=== PATIENT | female | born 1955 | race Caucasian/White ===

== ENCOUNTER 2019-03-24 11:29 | Emergency (ER) | payer MEDICARE, MEDICAID ==
[~2019-03-24] VITALS: Ht 160 cm; Wt 60.0 kg
[2019-03-24 11:44] VITALS: BP 122/78
[2019-03-24] MEDS ORDERED: HYDROcodone/acetaminophen 10/325mg tab PO ONE (12:20)
[2019-03-24] MEDS ORDERED: HYDR-4353 PO (13:16)
== END 2019-03-24 13:43 | disposition home or self-care (01) ==
LOC: ER 11:29
DX: M54.5 Low back pain (principal); M54.6 Pain in thoracic spine; G89.29 Other chronic pain; M81.0 Age-related osteoporosis without current pathological fracture; Z79.899 Other long term (current) drug therapy
CPT/HCPCS: 72070; 72100; 99283

== ENCOUNTER 2019-05-27 15:00 | Inpatient (IN) | payer MEDICARE, MEDICAID ==
[~2019-05-27] VITALS: Ht 160 cm; Wt 59.5 kg
[2019-05-27 18:21] LABS: BASOPHILS % (AUTO) 0.4 % (0-1); EOSINOPHILS # (AUTO) 0.1 X10'3 (0-0.9); EOSINOPHILS % (AUTO) 1.1 % (0-6); HEMATOCRIT 42.2 % (35.0-45.0); HEMOGLOBIN 14.7 g/dl (12.0-16.0); LYMPHOCYTES # (AUTO) 1.2 X10'3 (1.1-4.8); LYMPHOCYTES % (AUTO) 12.8 % (21-51); MEAN CORPUSCULAR HEMOGLOBIN 31.5 PG (27.0-31.0); MEAN CORPUSCULAR HGB CONC 34.8 g/dL (33.0-36.5); MEAN CORPUSCULAR VOLUME 90.3 FL (78-98); MEAN PLATELET VOLUME 6.4 FL (7.4-10.4); MONOCYTES % (AUTO) 10.8 % (2-12); NEUTROPHILS # (AUTO) 6.8 X10'3 (1.8-7.7); NEUTROPHILS % (AUTO) 74.9 % (42-75); PLATELET COUNT 330 X10'3 (140-440); RED BLOOD COUNT 4.67 X10'6 (4.20-5.60); RED CELL DISTRIBUTION WIDTH 12.3 % (11.5-14.5)
[2019-05-27 18:46] LABS: ALANINE AMINOTRANSFERASE 25 U/L (12-78); ALBUMIN 3.2 G/DL (3.4-5.0); ALBUMIN/GLOBULIN RATIO 0.8 (1.1-1.5); ALKALINE PHOSPHATASE 222 IU/L (46-116); ANION GAP 2 (8-16); ASPARTATE AMINO TRANSFERASE 24 U/L (10-37); BILIRUBIN,TOTAL 0.8 MG/DL (0.1-1.0); BLOOD UREA NITROGEN 5 MG/DL (7-18); BUN/CREATININE RATIO 12.2 (6.6-38.0); CALCIUM 8.9 MG/DL (8.5-10.1); CHLORIDE 83 MMOL/L (99-107); CREATININE 0.41 MG/DL (0.40-0.90); GLUCOSE 104 MG/DL (70-104); POTASSIUM 4.7 MMOL/L (3.5-5.1); TOTAL CARBON DIOXIDE 30.9 MMOL/L (24-32); TOTAL PROTEIN 7.2 G/DL (6.4-8.2); eGFR > 90 ML/MIN
[2019-05-27 19:00] LABS: SODIUM 116 MMOL/L (135-145)
[2019-05-27] MEDS ORDERED: AMLO10TA13 PO (20:29)
[2019-05-27] MEDS ORDERED: IBUP-1985 PO (20:29)
[2019-05-27] MEDS ORDERED: LISI40TA4 PO (20:29)
[2019-05-27] MEDS ORDERED: ondansetron/PF 4mg/2ml inj IV PRN (21:15)
[2019-05-27] MEDS ORDERED: HYDROcodone/acetaminophen 10/325mg tab PO PRN (21:15)
[2019-05-27] MEDS ORDERED: acetaminophen 325mg tablet PO PRN ×2 (21:15)
[2019-05-27] MEDS ORDERED: morphine 2 MG/ML inj. syringe IV PRN (21:15)
[2019-05-27] MEDS ORDERED: mag hydrox/Alum hydrox/simeth 30ml oral suspension PO PRN ×2 (21:15→23:35)
[2019-05-27] MEDS ORDERED: HYDROcodone/acetaminophen 5mg/325mg tablet PO PRN (21:15)
[2019-05-27] MEDS ORDERED: magnesium hydroxide 30ml (MOM) UD suspension PO PRN (21:15)
[2019-05-27 22:10] VITALS: BP 136/78
[2019-05-27] MEDS: normal saline 1000ml 1,000 ML IV SCH (22:35)
[2019-05-27] MEDS: morphine 2 MG/ML inj. syringe IV PRN (22:36)
[2019-05-27] MEDS ORDERED: ibuprofen 200mg tablet PO PRN (23:20)
[2019-05-27] MEDS ORDERED: LORazepam 2 mg/ml vial IV PRN (23:30)
[2019-05-27] MEDS ORDERED: thiamine inj. 100 MG in normal saline 100ml IV soln 100 ML IV ONE (23:30)
[2019-05-28] MEDS: morphine 2 MG/ML inj. syringe IV PRN (05:23)
[2019-05-28 06:00] VITALS: BP 107/63
--- NOTE | 2019-05-28 06:17 | NUR ---
Patient in room ORTHO 4020. I have received report from KELLY Denton and had the opportunity to ask questions and assume patient care.
[2019-05-28 07:07] LABS: BASOPHILS % (AUTO) 0.4 % (0-1); EOSINOPHILS # (AUTO) 0.1 X10'3 (0-0.9); EOSINOPHILS % (AUTO) 1.5 % (0-6); HEMATOCRIT 40.1 % (35.0-45.0); HEMOGLOBIN 13.9 g/dl (12.0-16.0); LYMPHOCYTES % (AUTO) 16.2 % (21-51); MEAN CORPUSCULAR HEMOGLOBIN 31.8 PG (27.0-31.0); MEAN CORPUSCULAR HGB CONC 34.7 g/dL (33.0-36.5); MEAN CORPUSCULAR VOLUME 91.6 FL (78-98); MEAN PLATELET VOLUME 6.8 FL (7.4-10.4); MONOCYTES % (AUTO) 17.1 % (2-12); NEUTROPHILS # (AUTO) 3.8 X10'3 (1.8-7.7); NEUTROPHILS % (AUTO) 64.8 % (42-75); PLATELET COUNT 262 X10'3 (140-440); RED BLOOD COUNT 4.38 X10'6 (4.20-5.60); RED CELL DISTRIBUTION WIDTH 12.3 % (11.5-14.5); WHITE BLOOD COUNT 5.9 X10'3 (4.5-11.0)
[2019-05-28 07:14] LABS: ALANINE AMINOTRANSFERASE 20 U/L (12-78); ALBUMIN 2.5 G/DL (3.4-5.0); ALBUMIN/GLOBULIN RATIO 0.8 (1.1-1.5); ALKALINE PHOSPHATASE 179 IU/L (46-116); AMYLASE 14 U/L (25-115); ANION GAP 8 (8-16); ASPARTATE AMINO TRANSFERASE 21 U/L (10-37); BILIRUBIN,TOTAL 0.7 MG/DL (0.1-1.0); BLOOD UREA NITROGEN 5 MG/DL (7-18); BUN/CREATININE RATIO 13.5 (6.6-38.0); CALCIUM 8.3 MG/DL (8.5-10.1); CHLORIDE 91 MMOL/L (99-107); CREATININE 0.37 MG/DL (0.40-0.90); GLUCOSE 88 MG/DL (70-104); LIPASE < 50 U/L (73-393); MAGNESIUM 1.6 MG/DL (1.5-2.4); PHOSPHORUS 3.1 MG/DL (2.3-4.5); POTASSIUM 3.5 MMOL/L (3.5-5.1); SODIUM 124 MMOL/L (135-145); TOTAL CARBON DIOXIDE 25.2 MMOL/L (24-32); TOTAL PROTEIN 5.8 G/DL (6.4-8.2); eGFR > 90 ML/MIN
[2019-05-28] MEDS: normal saline 1000ml 1,000 ML IV SCH ×2 (07:14→19:23)
[2019-05-28 08:00] VITALS: BP 97/70
[2019-05-28] MEDS ORDERED: folic acid inj. 2 MG, thiamine inj. 100 MG, MVI, adult No.4 with vit. K 10 ML in dextro... IV SCH ×4 (08:00)
[2019-05-28] MEDS: amLODIPine 5mg tablet PO SCH (08:02)
[2019-05-28] MEDS: thiamine 100mg tablet PO SCH (08:02)
[2019-05-28] MEDS: pantoprazole 40mg Tablet.DR PO SCH ×2 (08:03→20:11)
[2019-05-28] MEDS: multivitamins, therapeutics tablet PO SCH (08:03)
[2019-05-28] MEDS: folic acid 1mg tablet PO SCH (08:03)
[2019-05-28] MEDS: heparin, porcine 5000 units/ml vial SQ SCH ×2 (08:04→20:11)
[2019-05-28] MEDS: LORazepam 1 MG tablet PO PRN ×2 (08:08→20:12)
[2019-05-28 08:13] LABS: PLATELET ESTIMATE NORMAL; TOTAL CELLS COUNTED 100
[2019-05-28 10:00] VITALS: BP 97/70
[2019-05-28] MEDS ORDERED: pneumococcal 23-VAL P-sac vacc 25 mcg/0.5ml vial IMVAC ONE (10:00)
--- NOTE | 2019-05-28 11:30 | NUR ---
Spoke with family regarding alcohol withdrawal, patient stated she would not stop drinking. Family agreed that it would be better for patient to have a couple of beers per day while she is here to limit withdrawal symptoms instead of putting patient into withdrawal.
--- NOTE | 2019-05-28 14:35 | NUR ---
PAGER ID: [phone] MESSAGE: KELLY Ledesma, ext [phone], [id number], Lenny, Patient requesting nicotine patch.
[2019-05-28 18:00] VITALS: BP 120/75
--- NOTE | 2019-05-28 18:18 | NUR ---
Problems reprioritized. Patient report given, questions answered & plan of care reviewed with KELLY Martinez.
[2019-05-28] MEDS ORDERED: lisinopril 20mg tablet PO SCH (21:00)
[2019-05-28 22:00] VITALS: BP 93/51
[2019-05-29] MEDS: normal saline 1000ml 1,000 ML IV SCH (03:14)
[2019-05-29 06:23] LABS: BASOPHILS % (AUTO) 0.9 % (0-1); EOSINOPHILS # (AUTO) 0.1 X10'3 (0-0.9); EOSINOPHILS % (AUTO) 2.7 % (0-6); HEMATOCRIT 38.7 % (35.0-45.0); HEMOGLOBIN 13.2 g/dl (12.0-16.0); LYMPHOCYTES # (AUTO) 1.2 X10'3 (1.1-4.8); LYMPHOCYTES % (AUTO) 23.6 % (21-51); MEAN CORPUSCULAR HEMOGLOBIN 31.1 PG (27.0-31.0); MEAN CORPUSCULAR VOLUME 91.7 FL (78-98); MEAN PLATELET VOLUME 6.5 FL (7.4-10.4); MONOCYTES % (AUTO) 18.3 % (2-12); NEUTROPHILS # (AUTO) 2.9 X10'3 (1.8-7.7); NEUTROPHILS % (AUTO) 54.5 % (42-75); PLATELET COUNT 274 X10'3 (140-440); RED BLOOD COUNT 4.22 X10'6 (4.20-5.60); RED CELL DISTRIBUTION WIDTH 12.6 % (11.5-14.5); WHITE BLOOD COUNT 5.3 X10'3 (4.5-11.0)
--- NOTE | 2019-05-29 06:29 | NUR ---
REPORT GIVEN TO KELLY HESTER.
[2019-05-29 06:47] LABS: ALANINE AMINOTRANSFERASE 18 U/L (12-78); ALBUMIN 2.7 G/DL (3.4-5.0); ALBUMIN/GLOBULIN RATIO 0.8 (1.1-1.5); ALKALINE PHOSPHATASE 174 IU/L (46-116); AMYLASE 17 U/L (25-115); ANION GAP 6 (8-16); ASPARTATE AMINO TRANSFERASE 18 U/L (10-37); BILIRUBIN,TOTAL 0.4 MG/DL (0.1-1.0); BLOOD UREA NITROGEN 4 MG/DL (7-18); BUN/CREATININE RATIO 9.3 (6.6-38.0); CALCIUM 8.4 MG/DL (8.5-10.1); CHLORIDE 95 MMOL/L (99-107); CREATININE 0.43 MG/DL (0.40-0.90); GLUCOSE 87 MG/DL (70-104); LIPASE 62 U/L (73-393); MAGNESIUM 1.7 MG/DL (1.5-2.4); SODIUM 128 MMOL/L (135-145); TOTAL CARBON DIOXIDE 27.5 MMOL/L (24-32); TOTAL PROTEIN 6.1 G/DL (6.4-8.2); eGFR > 90 ML/MIN
[2019-05-29 06:48] VITALS: BP 118/71
--- NOTE | 2019-05-29 06:49 | NUR ---
Patient in room ORTHO 4020A. I have received report from KELLY BOWER and had the opportunity to ask questions and assume patient care.
[2019-05-29] MEDS: folic acid 1mg tablet PO SCH (07:36)
[2019-05-29] MEDS: amLODIPine 5mg tablet PO SCH (07:37)
[2019-05-29] MEDS: pantoprazole 40mg Tablet.DR PO SCH (07:37)
[2019-05-29] MEDS: multivitamins, therapeutics tablet PO SCH (07:38)
[2019-05-29] MEDS: thiamine 100mg tablet PO SCH (07:38)
[2019-05-29] MEDS: heparin, porcine 5000 units/ml vial SQ SCH (07:39)
--- NOTE | 2019-05-29 09:35 | NUR ---
PAGER ID: [phone] MESSAGE: KACIE [phone]-[id number]: SHIN MAR [id number]...PT IS REQUESTING NICOTINE PATCH
[2019-05-29 09:37] VITALS: BP 118/68
[2019-05-29] MEDS ORDERED: ONDA4TAB6 PO (11:47)
--- NOTE | 2019-05-29 13:36 | NUR ---
IV REMOVED, PT TOLERATED WELL. RX CALLED TO [facility]. PT DC IN STABLE CONDITION.
--- NOTE | 2019-05-30 15:02 | NUR ---
Case Management DC follow up: Pt sleeping. spoke to pt SO, Ilya Oviedo. Stated pt has been "holding everything down". pt has not experienced further bouts of NV. Follow up appt w/PCP is 06/03/2019. States pt has not experienced SOB, resp distress, emergent gen pain, cp, dizziness at this time. reported back pain, which is noted as chronic. All needs met, questions answered at DC. No further questions at this time.
== END 2019-05-29 13:50 | disposition home or self-care (01) | DRG 641 ==
LOC: ER 15:01 → ED HOLD 21:14 → EDBEDREQ 21:37 → ORTHO 4S 21:50
PROVIDERS: ADMIT Internal Medicine; ATTEND Family Medicine
DX: E87.1 Hypo-osmolality and hyponatremia (principal); E86.0 Dehydration; K52.9 Noninfective gastroenteritis and colitis, unspecified; F10.20 Alcohol dependence, uncomplicated; F17.210 Nicotine dependence, cigarettes, uncomplicated; I10 Essential (primary) hypertension; J45.909 Unspecified asthma, uncomplicated; G89.29 Other chronic pain; M54.9 Dorsalgia, unspecified; Z79.899 Other long term (current) drug therapy; Z71.6 Tobacco abuse counseling
CPT/HCPCS: 36415; 71046; 80053; 82150; 83605; 83690; 83735; 83880; 84100; 84145; 85025; 85610; 87081; 97110; 97116; 97162; G0378; J1644; J2270; J2405; J3411; J7030

== ENCOUNTER 2020-07-26 13:17 | Emergency (ER) | payer MEDICARE, MEDICAID ==
[~2020-07-26] VITALS: Ht 160 cm; Wt 58.2 kg
[~2020-07-26 13:17] MED LIST: AMLO10TA13 PO; FURO40TA4 PO; LISI20TA28 PO; ONDA4TAB6 PO
[2020-07-26] MEDS ORDERED: ondansetron/PF 4mg/2ml inj IV ONE ×2 (13:35→13:45)
[2020-07-26] MEDS ORDERED: normal saline 1000ML IV soln IVB ONE ×2 (13:45→13:55)
[2020-07-26] MEDS ORDERED: LORazepam 2 mg/ml vial IV ONE (13:55)
[2020-07-26] MEDS ORDERED: pantoprazole 40 MG vial IV ONE (14:35)
[2020-07-26] MEDS ORDERED: famotidine/PF 10 mg/ml inj IV ONE (14:35)
[2020-07-26 14:44] LABS: BASOPHILS % (AUTO) 0.4 % (0-1); EOSINOPHILS % (AUTO) 0.2 % (0-6); HEMATOCRIT 42.1 % (35.0-45.0); HEMOGLOBIN 14.3 g/dl (12.0-16.0); LYMPHOCYTES # (AUTO) 0.7 X10'3 (1.1-4.8); LYMPHOCYTES % (AUTO) 13.9 % (21-51); MEAN CORPUSCULAR HEMOGLOBIN 32.5 PG (27.0-31.0); MEAN CORPUSCULAR HGB CONC 33.9 g/dL (33.0-36.5); MEAN CORPUSCULAR VOLUME 95.8 FL (78-98); MEAN PLATELET VOLUME 7.8 FL (7.4-10.4); MONOCYTES # (AUTO) 0.5 X10'3 (0-0.9); MONOCYTES % (AUTO) 10.6 % (2-12); NEUTROPHILS # (AUTO) 3.8 X10'3 (1.8-7.7); NEUTROPHILS % (AUTO) 74.9 % (42-75); PLATELET COUNT 109 X10'3 (140-440); RED CELL DISTRIBUTION WIDTH 13.3 % (11.5-14.5); WHITE BLOOD COUNT 5.1 X10'3 (4.5-11.0)
[2020-07-26 14:58] LABS: ALANINE AMINOTRANSFERASE 45 U/L (12-78); ALBUMIN 3.2 G/DL (3.4-5.0); ALBUMIN/GLOBULIN RATIO 0.8 (1.1-1.5); ALKALINE PHOSPHATASE 224 IU/L (46-116); ANION GAP 12 (8-16); ASPARTATE AMINO TRANSFERASE 88 U/L (10-37); BLOOD UREA NITROGEN 3 MG/DL (7-18); BUN/CREATININE RATIO 9.1 (6.6-38.0); CALCIUM 8.1 MG/DL (8.5-10.1); CHLORIDE 90 MMOL/L (99-107); CREATININE 0.33 MG/DL (0.40-0.90); GLUCOSE 99 MG/DL (70-104); LIPASE < 50 U/L (73-393); POTASSIUM 3.4 MMOL/L (3.5-5.1); SODIUM 125 MMOL/L (135-145); TOTAL PROTEIN 7.2 G/DL (6.4-8.2); eGFR > 90 ML/MIN
[2020-07-26] MEDS ORDERED: POTA20TA19 PO (15:34)
[2020-07-26] MEDS ORDERED: FURO-150 PO (15:34)
[2020-07-26] MEDS ORDERED: SODI100035 PO (15:34)
[2020-07-26] MEDS ORDERED: PANT-47 PO (15:44)
[2020-07-26] MEDS ORDERED: ONDA4TAB6 PO (15:44)
[2020-07-26 17:30] VITALS: BP 154/97
--- NOTE | 2020-07-26 17:31 | NUR ---
PT'S WANTS TO TALK TO THE DOCTOR ABOUT ADDITIONAL MEDICATION RX FOR DC. DR WYNN IS IN A PROCEDURE BUT THEY WILL WAIT.
[2020-07-26] MEDS ORDERED: CHLO25CA10 PO (17:45)
--- NOTE | 2020-07-26 17:59 | NUR ---
DR WYNN TALKS TO PT ABOUT ADDITIONAL RX OF LIBRUIM WHICH IS GIVEN TO THEM. ASSIST PT AND HER VIA W/C OUT TO THEIR CAR.
== END 2020-07-26 18:03 | disposition home or self-care (01) ==
LOC: ER 13:18
DX: K29.20 Alcoholic gastritis without bleeding (principal); E87.6 Hypokalemia; E87.1 Hypo-osmolality and hyponatremia; I10 Essential (primary) hypertension; J44.9 Chronic obstructive pulmonary disease, unspecified; G89.29 Other chronic pain; F17.200 Nicotine dependence, unspecified, uncomplicated; Z79.899 Other long term (current) drug therapy
CPT/HCPCS: 36415; 80053; 83690; 85025; 96361; 96374; 96375; 96376; 99284; C9113; J2060; J2405; J3490; J7030

== ENCOUNTER 2024-07-10 19:49 | Emergency (ER) | payer MEDICARE, MEDICAID ==
[~2024-07-10] VITALS: Ht 160 cm; Wt 56.8 kg
[~2024-07-10 19:49] MED LIST changes: +ALB0.5UD IH; -AMLO10TA13 PO; +ATEN-168 PO; -FURO40TA4 PO; +PANT-47 PO
[2024-07-10 20:04] VITALS: BP 157/82
[2024-07-10] MEDS: ondansetron 4mg rapidly disintigrating tab PO ONE (23:51)
[2024-07-10] MEDS: ibuprofen tablet 400 MG TABLET PO ONE (23:51)
[2024-07-10] MEDS ORDERED: ONDA-245 PO (23:59)
[2024-07-10] MEDS ORDERED: ALBU8HFA INH (23:59)
[2024-07-10] MEDS ORDERED: TAM75C PO (23:59)
[2024-07-11] MEDS: ipratropium/albuterol 3ml nebule NEB ONE (00:03)
[2024-07-11 00:04] VITALS: PULSE 95; RESP 18; O2SAT 94
[2024-07-11 00:09] VITALS: TEMP 98
[2024-07-11 00:10] VITALS: PULSE 107; RESP 18; O2SAT 92
[2024-07-13] MEDS ORDERED: LISI30TA4 PO (16:58)
[2024-07-13] MEDS ORDERED: CYCL5TAB4 PO (16:58)
[2024-07-13] MEDS ORDERED: IBUP-1986 PO (16:58)
[2024-07-13] MEDS ORDERED: POTA-206 PO (16:58)
[2024-07-13] MEDS ORDERED: GABA300C PO (16:58)
[2024-07-13] MEDS ORDERED: VIT1TAB.13 PO (16:59)
== END 2024-07-11 00:17 | disposition home or self-care (01) ==
LOC: ER 19:50
DX: J11.1 Influenza due to unidentified influenza virus with other respiratory manifestations (principal); I10 Essential (primary) hypertension; J44.9 Chronic obstructive pulmonary disease, unspecified; Z98.890 Other specified postprocedural states; Z20.822 Contact with and (suspected) exposure to COVID-19
CPT/HCPCS: 36415; 71045; 87502; 87503; 87811; 94640; 94760; 99284